=== PATIENT | male | born 1970 | race Caucasian/White ===

== ENCOUNTER 2022-07-08 11:57 | Emergency (ER) | payer BC, OTHER ==
[2022-07-08] MEDS ORDERED: Lidocaine 1% PF 2 ML SDV INJECT ONE (12:18)
[2022-07-08] MEDS ORDERED: Diphtheria,Pertussis(Acell),Tetanus Vaccine 0.5 ML Syringe IM ONE (12:18)
== END 2022-07-08 13:31 | disposition home or self-care (01) ==
LOC: MW.ED 11:57
DX: S62.640B Nondisplaced fracture of proximal phalanx of right index finger, initial encounter for open fracture (principal); Z23 Encounter for immunization; W31.2XXA Contact with powered woodworking and forming machines, initial encounter
CPT/HCPCS: 12001; 73140-26-F6; 73140-F6; 90471; 90715; 99283-25; J3490

== ENCOUNTER 2022-12-08 09:31 | Emergency (ER) | payer OTHER ==
[2022-12-08] MEDS ORDERED: Aspirin 81 MG Tab.Chew PO ONE (09:49)
[2022-12-08] MEDS ORDERED: Heparin Sodium 5,000 Units/ML Vial IVPUSH ONE (09:49)
[2022-12-08] MEDS ORDERED: Sodium Chloride 0.9% 2.5 ML Syringe FLUSH PRN (09:49)
[2022-12-08] MEDS ORDERED: Sodium Chloride 0.9% 10 ML Syringe FLUSH PRN (09:49)
[2022-12-08] MEDS ORDERED: Sodium Chloride 0.9% 1,000 ML IV ONE (09:49)
[2022-12-08] MEDS ORDERED: Heparin Sodium/0.45% NaCl 500 ML IV SCH (10:00)
[2022-12-08 11:25] LABS: BASOPHILS ABSOLUTE AUTO 0.1 K/uL (0.0-0.1); BASOPHILS PERCENT AUTO 0.7 % (0.0-1.5); EOSINOPHILS ABSOLUTE AUTO 0.6 K/uL (0.0-0.7); EOSINOPHILS PERCENT AUTO 5.6 % (0.0-7.0); HEMATOCRIT 40.8 % (38.0-50.0); HEMOGLOBIN 13.8 g/dL (13.0-17.0); LYMPHOCYTES PERCENT AUTO 29.6 % (16.0-40.0); MEAN CORPUSCULAR HEMOGLOBIN 30.7 pg (27.0-32.0); MEAN CORPUSCULAR HGB CONC 33.8 g/dL (31.0-37.0); MEAN CORPUSCULAR VOLUME 90.7 fL (80.0-98.0); MONOCYTES ABSOLUTE AUTO 0.4 K/uL (0.0-0.8); MONOCYTES PERCENT AUTO 3.9 % (0.0-15.0); NEUTROPHILS ABSOLUTE AUTO 6.2 K/uL (1.4-5.7); NEUTROPHILS PERCENT AUTO 60.2 % (48.0-80.0); NRBC ABSOLUTE 0 K/uL; PLATELET COUNT,PLT 162 K/uL (150-400); WHITE BLOOD CELL COUNT,WBC 10.26 K/uL (4.0-11.0)
[2022-12-08] MEDS ORDERED: Iopamidol 755 MG/ML 500 ML Multipack Bottle IVPUSH STA (11:28)
[2022-12-08 11:53] LABS: D-DIMER QUANTITATIVE 0.27 mg/L FEU (0.00-0.50); INR 1.08 (0.86-1.11)
[2022-12-08 12:06] LABS: PTT,PARTIAL THROMBOPLSTIN TIME > 139.0 SEC (23.9-30.7)
[2022-12-08 12:10] LABS: BLOOD UREA NITROGEN,BUN 13 mg/dL (7.0-18.0); CALCIUM 7.5 mg/dL (8.5-10.1); CARBON DIOXIDE,CO2 22.1 mmol/L (21.0-32.0); CHLORIDE,CL 99 mmol/L (98-107); CREATININE 0.8 mg/dL (0.8-1.3); GLUCOSE RANDOM 312 mg/dL (74-106); POTASSIUM,K 4.1 mmol/L (3.5-5.1); SODIUM,NA 131 mmol/L (136-148)
[2022-12-08 12:14] LABS: ESTIMATED GFR 106 mL/min (>60)
== END 2022-12-08 12:30 ==
LOC: MW.ED 09:31
DX: I70.90 Unspecified atherosclerosis (principal)
CPT/HCPCS: 36415; 71045; 75635; 80048; 84484; 85025; 85379; 85610; 85730; 93926; 96365; 96366; 99291; 99292; A9270; J1644; J3490; J7030; Q9967; 93010

== ENCOUNTER 2023-08-13 06:59 | Emergency (ER) | payer SELFPAY ==
[2023-08-13] MEDS ORDERED: Sodium Chloride 0.9% 10 ML Syringe FLUSH PRN (07:06)
[2023-08-13] MEDS ORDERED: Sodium Chloride 0.9% 20 ML SDV IV PRN (07:06)
[2023-08-13] MEDS ORDERED: Sodium Chloride 0.9% 2.5 ML Syringe FLUSH PRN (07:06)
[2023-08-13 07:14] LABS: HEMATOCRIT 42.9 % (42.0-52.0); HEMOGLOBIN 14.2 g/dL (14.0-18.0); MEAN CORPUSCULAR HGB CONC 33.1 g/dL (32.0-36.0); MEAN CORPUSCULAR VOLUME 90.5 fL (83.0-99.0); MEAN PLATELET VOLUME 10.2 fL (9.4-12.4); PLATELET COUNT,PLT 341 K/uL (150-400); RED BLOOD CELL COUNT 4.74 M/uL (4.52-5.90); WHITE BLOOD CELL COUNT,WBC 17.28 K/uL (3.9-11.3)
[2023-08-13] MEDS: Morphine 4 MG/ML Syringe IVPUSH ONE ×2 (07:14→07:33)
[2023-08-13] MEDS: Clopidogrel 75 MG Tab PO ONE (07:14)
[2023-08-13] MEDS: Ondansetron 4 MG/2 ML SDV IVPUSH ONE (07:14)
[2023-08-13] MEDS: Heparin Sodium 5,000 Units/ML Vial IVPUSH ONE (07:26)
[2023-08-13] MEDS: Nitroglycerin 0.4 MG Tab.SL SL PRN (07:26)
[2023-08-13] MEDS: Aspirin 81 MG Tab.Chew PO ONE (07:26)
[2023-08-13] MEDS: Tenecteplase 50 MG Kit IV ONE (07:27)
[2023-08-13 07:29] LABS: INR 1.08 (0.86-1.11); PTT,PARTIAL THROMBOPLSTIN TIME 24.9 SEC (23.9-30.7)
[2023-08-13] MEDS: Aspirin 81 MG Tab.EC PO ONE (07:30)
[2023-08-13] MEDS: Aspirin 81 MG Tab.Chew ONE (07:30)
[2023-08-13] MEDS: Nitroglycerin 2% Oint 1 GM UD Packet TOP ONE (07:33)
[2023-08-13] MEDS: Heparin Sodium/0.45% NaCl 500 ML IV SCH (07:34)
[2023-08-13 07:38] LABS: BLOOD UREA NITROGEN,BUN 20 mg/dL (7.0-18.0); CALCIUM 8.7 mg/dL (8.5-10.1); CARBON DIOXIDE,CO2 24.5 mmol/L (21.0-32.0); CHLORIDE,CL 102 mmol/L (98-107); CREATININE 1.2 mg/dL (0.8-1.3); ESTIMATED GFR 72 mL/min (>60); GLUCOSE RANDOM 171 mg/dL (74-106); MAGNESIUM 1.8 mg/dL (1.8-2.4); POTASSIUM,K 3.3 mmol/L (3.5-5.1); SODIUM,NA 140 mmol/L (136-148)
[2023-08-13 07:51] LABS: EOSINOPHILS ABSOLUTE MAN 1.21 K/uL (0.00-0.45); EOSINOPHILS PERCENT MAN 7 % (0-6); LYMPHOCYTES ABSOLUTE MAN 7.08 K/uL (1.00-4.80); LYMPHOCYTES PERCENT MAN 41 % (24-44); MONOCYTES ABSOLUTE MAN 1.38 K/uL (0.00-0.80); MONOCYTES PERCENT MAN 8 % (0-8); SEG NEUTROPHILS PERCENT MAN 44 % (41-71)
[2023-08-13] MEDS: Nitroglycerin/D5W 25 MG/250 ML BOTTLE IV SCH (08:03)
[2023-08-13] MEDS: fentaNYL/Normal Saline 2,500 MCG in Premix Bag 1 BAG IV PRN (08:08)
== END 2023-08-13 09:33 ==
LOC: MW.ED 06:59
DX: I21.3 ST elevation (STEMI) myocardial infarction of unspecified site (principal); E11.9 Type 2 diabetes mellitus without complications; F17.200 Nicotine dependence, unspecified, uncomplicated; Z75.8 Other problems related to medical facilities and other health care; Z79.01 Long term (current) use of anticoagulants
CPT/HCPCS: 36415; 71045; 80048; 83735; 84484; 85025; 85610; 85730; 96365; 96366; 96368; 96375; 99285; A9270; J1644; J2270; J2305; J2405; J3101; 93005; 93010; 99291; J3490